=== PATIENT | male | born 1980 | race Caucasian/White ===

== ENCOUNTER 2023-01-27 16:25 | Outpatient (CLI) | payer BC, SELFPAY | END 2023-01-27 16:26 | disposition home or self-care (01) | PROVIDERS: PCP Family Medicine; Visit Provider Family Medicine | DX: Z00.00 Encounter for general adult medical examination without abnormal findings (principal); I49.9 Cardiac arrhythmia, unspecified; R25.1 Tremor, unspecified; I51.7 Cardiomegaly; R07.9 Chest pain, unspecified; A69.20 Lyme disease, unspecified; M35.3 Polymyalgia rheumatica | CPT/HCPCS: 80053; 82465; 83718; 84443; 86140; 86618 ==

== ENCOUNTER 2023-02-03 13:54 | Outpatient (CLI) | payer BC, SELFPAY | END 2023-02-03 13:55 | disposition home or self-care (01) | LOC: RAD 13:55 | PROVIDERS: PCP Family Medicine; Visit Provider Family Medicine | DX: R07.89 Other chest pain (principal) | CPT/HCPCS: 93225; 93226; 93306 ==

== ENCOUNTER 2023-02-21 14:58 | Outpatient (CLI) | payer BC, SELFPAY ==
[2023-02-21 15:47] VITALS: BP 144/82; PULSE 97; RESP 18
--- NOTE | 2023-02-21 16:02 | W.PM.STED ---
Stress Test Note Date Date of test: 02/21/23 Providers Primary care provider: Delbert Fermin Stress test physician: Nicholas Islas Stress Test Note Stress test ordered: Stress Echo Indication for test: cardiac arrythmia Results discussion: Patient is a very nice 42-year-old gentleman who presents for the above test, reviewed the cardiac stress test medical history form, and the patient accepts the risks benefits and side effects. Pretest EKG shows normal sinus rhythm, with a ventricular rate of 69, IVCD with a right bundle-branch configuration is noted, with a short AL interval. Ventricular rate of 69 with a blood pressure 120/74. patient has excellent exercise tolerance and following Quinten protocol was able to exercise to 15 minutes and 28 seconds, and reach 15.5 Mets. He had no chest pain shortness of breath or any other anginal equivalent symptoms. There were some ST wave changes, predominantly laterally and inferior. With maximal depression 3 mm inferiorly in 3 mm laterally. From V3 through V6. I suspect that this is normal given his high workload and asymptomatic nature. Correlation with the echo will be needed. Impression: ST wave changes described above, suspect this is a normal variant, given his high workload asymptomatic nature, clinical correlation with ECHO report Follow up suggested: patient will be discharged home, Cardiology will review the echo portion, clinical correlation this will be needed. Consideration for a variant of Jfmqf-Lapxcanmu-Ufkjm syndrome should also be considered
== END 2023-02-21 15:48 | disposition home or self-care (01) ==
LOC: STRESS 14:59
PROVIDERS: PCP Family Medicine; Visit Provider Family Medicine
DX: I49.9 Cardiac arrhythmia, unspecified (principal); R07.9 Chest pain, unspecified
CPT/HCPCS: 93016; 93325; 93351